=== PATIENT | female | born 1935 | race African-American/Black ===

== ENCOUNTER 2021-11-29 03:34 | Emergency (ER) | payer BC ==
[~2021-11-29] VITALS: Ht 170.2 cm; Wt 78.0 kg
[2021-11-29 05:50] LABS: BASOPHILS % 0.6 % (0.0-2.0); HEMATOCRIT. 41.6 % (36.0-48.0); HEMOGLOBIN. 13.5 g/dL (12.0-16.0); LYMPHOCYTES % 21.6 % (20.0-50.0); MEAN CORPUSCULAR HEMOGLOBIN 29.9 pg (28.0-32.0); MEAN CORPUSCULAR VOLUME 92.2 fL (81.0-99.0); MEAN PLATELET VOLUME 7.3 fl (7.4-10.4); MONOCYTES % 4.5 % (2.0-8.0); NEUTROPHILS % 72.3 % (40.0-76.0); PLATELET 244 x1000/uL (130-400); RED BLOOD CELL COUNT 4.51 mill/uL (4.2-5.4)
[2021-11-29 05:57] LABS: CHLORIDE 106 mEq/L (98-107)
[2021-11-29 05:58] LABS: PROTHROMBIN TIME 10.9 sec (9.6-11.0)
[2021-11-29 06:12] LABS: T4 FREE 1.13 ng/dL (0.76-1.46)
[2021-11-29 07:05] LABS: CLARITY URINE CLEAR (CLEAR); COLOR URINE YELLOW (YELLOW); KETONES URINE NEGATIVE (NEGATIVE); LEUKOCYTE ESTERASE URINE NEGATIVE (NEGATIVE); NITRITE URINE NEGATIVE (NEGATIVE); OCCULT BLOOD URINE NEGATIVE (NEGATIVE); PROTEIN URINE NEGATIVE (NEGATIVE); SPECIFIC GRAVITY URINE 1.011 (1.005-1.030); UROBILINOGEN URINE 0.2 E.U./dL (0.2-1.0)
[2021-11-29 09:24] VITALS: BP 148/89
== END 2021-11-29 09:49 | disposition home or self-care (01) ==
LOC: ER 03:34
DX: R00.2 Palpitations (principal); I10 Essential (primary) hypertension
CPT/HCPCS: 36415; 71045; 80053; 81003; 83735; 83880; 84439; 84443; 84484; 85025; 93005; 99285